=== PATIENT | male | born 2000 | race Caucasian/White ===

== ENCOUNTER 2024-07-13 05:36 | Emergency (ER) | payer OTHER ==
[2024-07-13] MEDS ORDERED: Ketorolac Tromethamine 30 MG (1 mL) VIAL ONE (06:04)
[2024-07-13] MEDS ORDERED: Acetaminophen 500 MG TAB ONE (06:05)
[2024-07-13 06:21] LABS: #Basophils 0.06 10x3/uL (0.0-0.2); #Eosinophils 0.52 10x3/uL (0.0-0.5); #Monocytes 0.45 10x3/uL (0.0-1.1); #Neutrophils 3.24 10x3/uL (1.5-8.4); %Basophils 0.8 % (0.0-2.0); %Eosinophils 6.9 % (0.0-6.0); %Lymphocytes 43.1 % (18.0-47.0); %Neutrophils 42.9 % (40.0-75.0); Hematocrit 42.7 % (38.8-50.0); Hemoglobin 14.7 g/dL (13.5-17.5); Mean Corpuscular HGB CONC 34.4 g/dL (32.0-36.0); Mean Corpuscular Hemoglobin 28.7 pg (27.0-33.0); Mean Corpuscular Volume 83.2 fL (81.2-95.1); Mean Platelet Volume 8.4 fL (7.4-10.4); Platelet Count 265 10x3/uL (150-450); RBC Distribution Width 12.2 % (11.5-14.5); Red Blood Cell (RBC) Count 5.13 10x6/uL (4.32-5.72); White Blood Cell (WBC) Count 7.54 10x3/uL (3.5-10.5)
[2024-07-13 06:39] LABS: Bilirubin Neg (Negative); Blood, Urine Negative (Negative); Clarity Clear (Clear); Glucose, Urine (Dipstick) Normal (Negative); Ketone, Urine Negative (Negative); Leukocyte Negative (Negative); Nitrite Negative (Negative); Protein, Urine (Dipstick) Negative (Neg-Trace); Specific Gravity, Urine 1.025 (1.005-1.030); Urobilinogen Normal mg/dL (Less than 2)
[2024-07-13 06:43] LABS: ALT (SGPT) 46 U/L (Less than 45); AST (SGOT) 27 U/L (11-34); Albumin 4.3 g/dL (3.1-4.5); Alkaline Phosphatase 84 U/L (40-110); Anion Gap 15 mmol/L (10-20); BUN (Urea Nitrogen) 10 mg/dL (8.9-20.6); Bilirubin, Total 0.5 mg/dL (0.3-1.2); Calc. Creatinine Clearance 0 mL/min (70-130); Calcium 9.6 mg/dL (7.8-10.44); Carbon Dioxide 22 mmol/L (22-29); Chloride 105 mmol/L (98-107); Estimated GFR 79; Glucose 100 mg/dL (70-105); Lipase 18 U/L (8-78); Protein, Total 7.3 g/dL (6.0-8.3); Sodium 138 mmol/L (136-145)
[2024-07-13 06:49] LABS: Bacteria/HPF Rare-Few HPF (None Seen); CAUTI Indications for Culture Pelvic or flank pain; RBC/HPF 0-3 HPF (0-3); Squamous Epithelial 0-3 HPF (0-3); WBC/HPF 0-3 HPF (0-3)
[2024-07-13 06:50] LABS: Urine Culture Reflex No No
[2024-07-13] MEDS ORDERED: Iopamidol 300 61% 100 ML VIAL FS ONE (09:48)
== END 2024-07-13 08:23 | disposition home or self-care (01) ==
LOC: CSHERS 05:36
DX: R10.11 Right upper quadrant pain (principal)
CPT/HCPCS: 71045; 74177; 76705; 80053; 81001; 83690; 85025; 93005; 96374; J1885; Q9967